=== PATIENT | female | born 1995 | race Two or more races ===

== ENCOUNTER 2019-09-20 19:37 | Emergency (ER) | payer MEDICAID ==
[~2019-09-20] VITALS: Ht 170.2 cm; Wt 127.0 kg
[2019-09-20 20:44] VITALS: BP 154/81
--- NOTE | 2019-09-20 21:38 | NUR ---
Patient discharged to home in stable condition. Written and verbal after care instructions given. Patient verbalizes understanding of instruction.
== END 2019-09-20 21:39 | disposition home or self-care (01) ==
LOC: EDSEX 19:41 → ER 19:41
DX: B34.9 Viral infection, unspecified (principal); I10 Essential (primary) hypertension; F12.90 Cannabis use, unspecified, uncomplicated